=== PATIENT | female | born 1965 | race Caucasian/White ===

== ENCOUNTER 2020-05-19 08:39 | Outpatient (CLI) | payer OTHER, SELFPAY ==
--- NOTE | 2020-05-19 08:46 | CTR_ITS ---
PROCEDURE INFORMATION: Exam: CT Abdomen And Pelvis With Contrast Exam date and time: 05/19/2020 8:54 AM Age: 54 years old Clinical indication: Abdominal pain; Prior surgery; Surgery type: Csection; Patient HX: Sudden onset of severe epigastric pain with nausea; Additional info: Epigastric abdominal pain TECHNIQUE: Imaging protocol: Computed tomography of the abdomen and pelvis with intravenous contrast. Radiation optimization: All CT scans at this facility use at least one of these dose optimization techniques: automated exposure control; mA and/or kV adjustment per patient size (includes targeted exams where dose is matched to clinical indication); or iterative reconstruction. Contrast material: OMNI 300; Contrast volume: 95 ml; Contrast route: INTRAVENOUS (IV); COMPARISON: CR Abdomen Series Acute [id number] 01/22/2018 9:58 AM RADIATION DOSE METRICS: Total DLP (mGy-cm): 1271.38 FINDINGS: Pleural space: Mild interstitial prominence without acute airspace or pleural disease. Liver: Poorly defined hypodensity in the left hepatic lobe along with a 11 mm left hepatic lobe cyst. Gallbladder and bile ducts: No cholelithiasis or biliary ductal dilatation. Pancreas: No pancreatic mass or ductal dilatation. Spleen: No splenomegaly. Adrenals: Unremarkable adrenals. Kidneys and ureters: Normal renal morphology. Duplicated collecting systems, without hydronephrosis. Punctate renal hypodensities which are too small to accurately characterize. Stomach and bowel: Gastric wall thickening. No significant small bowel dilatation. Prominent stool and diverticula, without pericolonic inflammation. Appendix: No acute appendicitis. Intraperitoneal space: No significant free fluid. Vasculature: Normal caliber of the abdominal aorta. Lymph nodes: Subcentimeter lymph nodes. Bladder: Normal bladder morphology. Reproductive: Indwelling tampon. Enlarged uterus. Bilateral high attenuation ovarian cysts, including 3.1 cm right and 2.2 cm left ovarian cyst. Bones/joints: Bilateral sacroiliac joint sclerosis. Mild degenerative change and lumbar disc bulging. Soft tissues: Small fat containing umbilical hernia. CT/CT abdomen pelvis w con* [id number] IMPRESSION: 1. Gastric wall thickening. 2. Bilateral high attenuation ovarian cysts, including 3.1 cm right and 2.2 cm left ovarian cyst. 3. Prominent stool and diverticula, without pericolonic inflammation. 4. Additional findings as described above. COMMENTS: Consistent with the [employer]'s Incidental Findings Committee white paper (J Am She Radiol 2018): Any incidental renal lesion less than 1.0 cm or classified as too small to characterize, or any incidental cystic renal lesion characterized as simple-appearing, is likely benign. No follow-up imaging is recommended for these lesions per consensus recommendations based on imaging criteria. Radiation Dose CTDIVOL = (mGy): DLP = 1271.38 (mGy-cm)
[2020-05-19] MEDS: barium sulfate 450 mL Oral Susp PO (08:55)
[2020-05-19] MEDS: iohexol 300 mg/mL 100 mL Btl IV (09:28)
[2020-05-19 13:17] LABS: Alanine Aminotransferase 13 U/L (0-33); Albumin Level 4.6 g/dL (3.5-5.2); Alkaline Phosphatase 68 IU/L (35-105); Aspartate Amino Transferase 14 U/L (0-32); Blood Urea Nitrogen 7 mg/dL (6-20); Calcium 9.7 mg/dL (8.5-10.5); Carbon Dioxide 23 mmol/L (22-29); Chloride 96 mmol/L (98-107); Globulin 1.8 g/dL (1.3-4.6); Glomerular Filtration Rate 129.6 mL/min (90-130); Glucose 99 mg/dL (65-115); Lipase 26 U/L (13-60); Osmolality Calculated 274 mOsm/kg (285-295); Sodium 134 mmol/L (136-145); Total Bilirubin 0.3 mg/dL (0.15-1.2); Total Protein 6.4 g/dL (6.6-8.7)
[2020-05-19 13:18] LABS: Basophils % 0.3 %; Eosinophils # 0.1 10^3/uL (0.0-0.8); Eosinophils % 0.8 %; Hemoglobin 9.6 g/dL (11.5-15.3); Lymphocytes # 2.2 10^3/uL (0.8-4.8); Lymphocytes % 22.3 %; Mean Corpuscular Hemoglobin 21.2 pg (28.0-34.0); Mean Corpuscular Volume 70.6 fL (81-99); Mean Platelet Volume 10.2 fL (7.4-10.4); Monocytes # 0.7 10^3/uL (0.2-0.9); Monocytes % 7.1 %; Neutrophils # 6.7 10^3/uL (1.8-7.7); Neutrophils % 69.3 %; Nucleated Red Blood Cells % 0 %; Platelet Count 416 10^3/cmm (130-400); Red Blood Count 4.53 10^6/uL (4.1-5.3); Red Cell Distribution Width 16.9 % (12.1-15.1); White Blood Count 9.7 10^3/uL (4.0-10.0)
== END 2020-05-19 08:40 | disposition home or self-care (01) ==
LOC: RAD 08:42
PROVIDERS: PCP Family Medicine; Visit Provider Family Medicine
DX: R10.13 Epigastric pain (principal); N83.202 Unspecified ovarian cyst, left side; N83.201 Unspecified ovarian cyst, right side
CPT/HCPCS: 74177; 80053; 83690; 85025

== ENCOUNTER 2020-05-24 09:31 | Day surgery (SDC) | payer OTHER, SELFPAY ==
[2020-05-23 12:34] VITALS: BMI 30.9
[2020-05-24 10:10] VITALS: BP 133/87; PULSE 80; RESP 18; TEMP 36.2; O2SAT 97
--- NOTE | 2020-05-24 10:19 | W.PM.OPSUD ---
Surgery/Procedure H&P Update DATE OF PROCEDURE: May 24, 2020 DATE H&P PERFORMED: 05/23/20 H&P UPDATE INFORMATION: I have reviewed H&P completed within last 30 days, I have examined patient prior to procedure and No changes to prior documentation PLANNED PROCEDURE: Operation Date: 05/24/20 11:00 Proposed Procedures p EGD/32887 K12.9(Not Applicable) - Sid Brandon MD
[2020-05-24 10:23] LABS: OR HCG Qualitative Urine Negative (Negative)
[2020-05-24] MEDS: sodium chloride 0.9% 1,000 ML 30 ML IV (10:29)
--- NOTE | 2020-05-24 10:41 | ANES.PREANE2 ---
Pre-Anesthetic Assessment Pre-Anesthetic Assessment: Height/Weight: Height 1.63 m Weight 81.647 kg Temp Pulse Resp BP Pulse Ox 97.1 F L 80 18 133/87 97 05/24/20 10:10 05/24/20 10:10 05/24/20 10:10 05/24/20 10:10 05/24/20 10:10 Preop Diagnosis: Portal vein thrombosis gastric wall thickening Proposed Procedure: Operation Date: 05/24/20 11:00 Proposed Procedures p EGD/74244 K12.9(Not Applicable) - Sid Brandon MD Familial anesthetic complications: none Was Beta Wyatt taken within 24 hours: N/A Last intake: Intake Last Liquid Date 05/23/20 Last Liquid Time 23:00 Last Solid Date 05/23/20 Last Solid Time 23:00 Social: Social History: Tobacco and No alcohol Exam: Pre-Anes Outpt Exam: alert, oriented x 3, clear to auscultation bilaterally and regular rate & rhythm Airway: Cervical ROM: WNL MP: 4 Dentition: Full Pulmonary: Pulmonary: None reported CV/HEM: CV/HEM: None reported : : None reported Hepatic: Hepatic: None reported GI: GI: GERD Metabolic: Metabolic: None reported Musc/skel: Musc/skel: None reported Neuropsych: Neuropsych: None reported Anesthetic Plan: ASA status: 1 Anesthesia: MAC Risk of > 500 ml blood loss (7ml/kg in children): No Meds/Allergies Current Medications: Current Medications Generic Name Dose Route Start Last Admin Trade Name Freq PRN Reason Stop Dose Admin Sodium Chloride 1,000 mls @ 30 ml s/hr 05/24/20 10:30 05/24/20 10:29 Sodium Chloride 0.9% IV 30 mls/hr .Q24H CINTIA Administration PFSH Anesthesia PFSH: Medical History delivery delivered Depression GERD (gastroesophageal reflux disease) Portal vein thrombosis Surgical History H/O hand surgery H/O oral surgery History of ankle surgery Status post colonoscopy Family History Sister Cancer breast Father Cancer melanoma, prostate Brother Cancer prostate Other CAD (coronary artery disease) Denies family history of Diabetes Anesthesia complication Bleeding disorder Social History Smoking and tobacco status: current every day smoker Alcohol intake: current Alcohol intake frequency: few times a week Lives independently: Yes Marital status: Single Current occupational status: employed History of recent travel: Yes ([place] in march and april) Out of state: Yes Out of country: No Data Anesthesia Other Labs: Laboratory Results - last 48 hr 05/24/20 10:20 Urine HCG, Qual Negative Cardiac Studies: No Data to Display
[2020-05-24 12:11] VITALS: BP 129/85; PULSE 64; RESP 16; TEMP 36.1; O2SAT 97
--- NOTE | 2020-05-24 12:13 | ANE.PACU2 ---
Inpatient post-anesthesia follow up: Airway intact: Yes Vital signs: Temperature 97 F Pulse Rate 64 Respiratory Rate 16 Blood Pressure 129/85 Pulse Oximetry 97 Oxygen Delivery Me thod Room Air Oxygen Flow Rate Fraction of Inspir ed Oxygen Hydration adequate: Yes Nausea and vomiting: No Mental status: Baseline
[2020-05-24 12:21] VITALS: BP 146/62; PULSE 64; RESP 18; O2SAT 100
== END 2020-05-24 12:28 | disposition home or self-care (01) ==
PROVIDERS: Anesthesiology; PCP Family Medicine; Visit Provider Surgery
PROC: 0DJ08ZZ Inspection of Upper Intestinal Tract, Via Natural or Artificial Opening Endoscopic (ICD-10-PCS; CPT 43235; principal; 2020-05-24 11:00)
DX: K21.9 Gastro-esophageal reflux disease without esophagitis (principal); R10.9 Unspecified abdominal pain; F17.210 Nicotine dependence, cigarettes, uncomplicated; I81 Portal vein thrombosis; K29.80 Duodenitis without bleeding
CPT/HCPCS: 12345; 45380; 84703; 88305; J2704; J7030

== ENCOUNTER → 2020-07-26 08:54 | Outpatient (BNVA) | payer OTHER, SELFPAY | PROVIDERS: PCP Family Medicine; Visit Provider Nurse Practitioner Women's Health | DX: N93.9 Abnormal uterine and vaginal bleeding, unspecified (principal); B96.89 Other specified bacterial agents as the cause of diseases classified elsewhere; N76.0 Acute vaginitis | CPT/HCPCS: 85025; 87491; 87591; 87661 ==

== ENCOUNTER 2020-10-02 08:08 | Outpatient (CLI) | payer OTHER, SELFPAY ==
--- NOTE | 2020-10-02 08:00 | MM_ITS ---
WS: [id number] Bilateral screening digital mammogram, 10/02/2020 Clinical Data: breast cancer screening Comparison: 01/15/2018, 08/08/2015, 03/20/2012, 12/02/2007, 11/04/2006. Findings: The breast parenchymal pattern shows heterogeneous density No spiculated masses or clustered calcific ations are seen. There are no secondary signs of carcinoma. MM/[place] [id number] Impression: 1. Negative bilateral mammogram unchanged. 2. Recommend annual screening mammograms. BIRADS: 1-Negative FOLLOW UP: 1 Year Follow-up The CAD dry cleaning checker was used.
== END 2020-10-02 08:09 | disposition home or self-care (01) ==
PROVIDERS: PCP Family Medicine; Visit Provider Nurse Practitioner Women's Health
DX: Z12.31 Encounter for screening mammogram for malignant neoplasm of breast (principal)
CPT/HCPCS: 77067

== ENCOUNTER → 2021-06-21 09:18 | Outpatient (BNVA) | payer OTHER, SELFPAY | PROVIDERS: PCP Family Medicine; Referring Provider Family Medicine; Visit Provider Specialist | DX: G25.0 Essential tremor (principal); M25.539 Pain in unspecified wrist; R20.0 Anesthesia of skin; R20.2 Paresthesia of skin; F17.200 Nicotine dependence, unspecified, uncomplicated | CPT/HCPCS: 99204 ==

== ENCOUNTER → 2021-09-28 10:30 | Outpatient (BNVA) | payer OTHER, SELFPAY | PROVIDERS: PCP Family Medicine; Visit Provider Nurse Practitioner Women's Health | DX: Z11.3 Encounter for screening for infections with a predominantly sexual mode of transmission (principal); N93.9 Abnormal uterine and vaginal bleeding, unspecified | CPT/HCPCS: 85025; 86592; 86803; 87491; 87591; 87661; 87806 ==

== ENCOUNTER 2021-12-10 13:31 | Outpatient (CLI) | payer OTHER, SELFPAY ==
--- NOTE | 2021-12-10 13:50 | US_ITS ---
WS: [id number] TRANSABDOMINAL PELVIC AND TRANSVAGINAL PELVIC ULTRASOUND HISTORY: N93.9 - Abnormal uterine and vaginal bleeding, unspecified COMPARISON: None available. Also within the differential. Ill-defined Uterus: 11.3 cm x 6.3 cm x 5.9 cm. Uterus is enlarged and anteverted. Very heterogeneous appearance t o the myometrium. Both the anterior and posterior myometrium are of increased echogenicity and hetero geneous. Endometrium: Poorly visualized endometrium. Endometrium is not seen throughout its entirety. The junc tional zone is not well identified. Right ovary: 4.5 cm x 4.0 cm x 4.3 cm. RIGHT ovary is slightly enlarged. There is a cyst with septati on or 2 adjacent cysts associated with the RIGHT ovary. The entire cyst measures 2.8 x 3.2 x 3.1 cm. No solid mass. There is a very tiny amount of free fluid adjacent to the ovary. Left ovary: 3.0 cm x 3.7 cm x 1.9 cm. Normal size and vascularity. US/US pelvic with transvaginal IMPRESSION: 1. Abnormal uterus. Enlarged heterogeneous uterus. This may be a fibroid uteru s with ill-defined diffuse fibroids. Adenomyosis within the differential also. 2. Ill-defined and only partially visualized endometrium. Cannot exclude endom etrial neoplasm is only a small portion of the endometrium is visualized and th e junctional zone is abnormal. Adenomyosis within the differential. 3. RIGHT ovarian cysts versus septated cyst.
== END 2021-12-10 13:32 | disposition home or self-care (01) ==
LOC: RAD 13:46
PROVIDERS: PCP Family Medicine; Visit Provider Obstetrics & Gynecology
DX: N93.9 Abnormal uterine and vaginal bleeding, unspecified (principal); N80.0 Endometriosis of uterus
CPT/HCPCS: 76830; 76856

== ENCOUNTER → 2021-12-12 14:33 | Outpatient (BNVA) | payer OTHER, SELFPAY | PROVIDERS: PCP Family Medicine; Visit Provider Obstetrics & Gynecology | DX: N93.9 Abnormal uterine and vaginal bleeding, unspecified (principal); N76.0 Acute vaginitis; B96.89 Other specified bacterial agents as the cause of diseases classified elsewhere | CPT/HCPCS: 84443; 88305 ==

== ENCOUNTER → 2021-12-26 10:20 | Outpatient (BNVA) | payer OTHER, SELFPAY | PROVIDERS: PCP Family Medicine; Visit Provider Orthopaedic Surgery | DX: Z11.52 Encounter for screening for COVID-19 (principal) | CPT/HCPCS: 87635 ==

== ENCOUNTER 2022-01-24 10:29 | Inpatient (IN) | payer OTHER, SELFPAY ==
[2022-01-23 10:09] VITALS: BMI 30.5
[2022-01-24] VITALS (22 sets, daily range): BP systolic 108–163; BP diastolic 82–93; PULSE 70–97; RESP 10–18; TEMP 36.6–37.1; O2SAT 87–98
[2022-01-24] MEDS: sodium chloride 0.9% 1,000 ML 30 ML IV (06:22)
[2022-01-24 06:45] LABS: Basophils % 0.5 %; Eosinophils # 0.3 10^3/uL (0.0-0.8); Eosinophils % 3.5 %; Hematocrit 42.1 % (37.0-47.0); Hemoglobin 14.1 g/dL (11.5-15.3); Lymphocytes # 2.6 10^3/uL (0.8-4.8); Lymphocytes % 34.3 %; Mean Corpuscular HGB Conc 33.5 g/dL (30.0-36.0); Mean Corpuscular Hemoglobin 31.3 pg (28.0-34.0); Mean Corpuscular Volume 93.3 fl (81-99); Monocytes # 0.6 10^3/uL (0.2-0.9); Monocytes % 8.6 %; Neutrophils # 3.96 10^3/uL (1.8-7.7); Nucleated Red Blood Cells % 0 %; Platelet Count 243 10^3/cmm (130-400); Red Blood Count 4.51 10^6/uL (4.1-5.3); Red Cell Distribution Width 12.4 % (12.1-15.1); White Blood Count 7.5 10^3/uL (4.0-10.0)
--- NOTE | 2022-01-24 06:45 | P.ANESASSM_ITS ---
Pre-Anesthetic Assessment Height/Weight: Height 1.63 m Weight 80.739 kg Temp Pulse Resp BP Pulse Ox 98.1 F 70 16 144/85 97 01/24/22 06:09 01/24/22 06:09 01/24/22 06:09 01/24/22 06:09 01/24/22 06:09 Preop Diagnosis: Abdominal pain, abnormal uterine bleeding Operation Date: 01/24/22 07:00 Proposed Procedures p Total Abdominal Hysterectomy 39534(Not Applicable) - Velia Francis MD s Salpingo Oophorectomy (Open)(Bilateral) - Velia Francis MD Familial anesthetic complications: None Was Beta Wyatt taken within 24 hours: N/A Was Clonidine taken within 24 hours: N/A Last intake: Intake Last Liquid Date 01/23/22 Last Liquid Time 20:00 Last Solid Date 01/23/22 Last Solid Time 20:00 Social Tobacco and No alcohol Exam alert, oriented x 3, clear to auscultation bilaterally and regular rate & rhythm Airway Mallampati: Class II Dentition: full GI Gastroesophageal Reflux Disease Neuropsych tremor Anesthetic Plan ASA status: 2 Anesthesia: General Risk of > 500 ml blood loss (7ml/kg in children): No Medications/Allergies Home Medications Medication Instructions Recorded Confirmed Last Taken Type fluoxetine 20 mg capsule 40 mg PO DAILY #60 cap 09/28/21 01/23/22 Unknown Rx Allergies Allergy/AdvReac Type Severity Reaction Status Date / Time No Known Allergies Allergy Verified 01/24/22 06:08 Current Medications Generic Name Dose Route Start Last Admin Trade Name Freq PRN Reason Stop Dose Admin Sodium Chloride 1,000 mls @ 30 mls/hr 01/24/22 06:00 01/24/22 06:22 Sodium Chloride 0.9% IV 01/25/22 05:59 30 mls/hr .Q24H CINTIA Administration PFSH Anesthesia Medical History Depression Controlled with fluoxetine managed by her primary care provider GERD (gastroesophageal reflux disease) Controlled with medication No pertinent past medical history Denies diabetes, asthma, hypertension, seizures, DVT/PE PMD: Dr. Lal Portal vein thrombosis Diagnosed in May 2020. States that this was diagnosed after a fall and she took Eliquis for 10 days. Surgical History H/O esophagogastroduodenoscopy (05/24/20) Gastritis and duodenitis History of ankle surgery 2005 and 2009 Fracture of the lower left leg which was repaired by Dr. Mercado; also had joint surgery in her left foot. S/P carpal tunnel release bilateral-left in July [address] Magana, right in 2014 in [place] S/P section x 1996 and 1998 S/P wisdom tooth extraction [employer] grade--had supernumerary teeth removed from sinus cavity Family History Sister Breast cancer Diagnosed at age 42, unsure if hormone receptive Father Prostate cancer Melanoma Diabetes Bowel perforation Brother CAD (coronary artery disease) Bowel perforation Prostate cancer Grandfather CAD (coronary artery disease) maternal Mother Stroke Ovarian cancer diagnosed at age 85 Family/Other Graves disease paternal aunt Denies family history of Anesthesia complication Uterine cancer Female Reproductive History Date of last menstrual period: 12/24/21 Data Anesthesia : 01/24/22 06:15 01/24/22 06:15 Cardiac Studies: No Data to Display
--- NOTE | 2022-01-24 06:56 | W.PM.OPSUD ---
Surgery/Procedure H&P Update DATE OF PROCEDURE: January 24, 2022 DATE H&P PERFORMED: 01/21/22 H&P UPDATE INFORMATION: I have reviewed H&P completed within last 30 days, I have examined patient prior to procedure, No changes to prior documentation and H&P is in [facility] EMR on date indicated PREOP DIAGNOSIS: Abdominal pain, abnormal uterine bleeding PLANNED PROCEDURE: Operation Date: 01/24/22 07:00 Proposed Procedures p Total Abdominal Hysterectomy [id number](Not Applicable) - Velia Francis MD s Salpingo Oophorectomy (Open)(Bilateral) - Velia Francis MD
[2022-01-24 06:58] LABS: Alanine Aminotransferase 18 U/L (0-33); Albumin Level 4.5 g/dL (3.5-5.2); Alkaline Phosphatase 54 IU/L (35-105); Aspartate Amino Transferase 16 U/L (0-32); Blood Urea Nitrogen 14 mg/dL (6-20); Calcium 9.4 mg/dL (8.5-10.5); Carbon Dioxide 21 mmol/L (22-29); Chloride 104 mmol/L (98-107); Creatinine Clr Calc Pharmacy 132.2208; Globulin 2.2 g/dL (1.3-4.6); Glomerular Filtration Rate 128.6 mL/min (90-130); Glucose 108 mg/dL (65-115); Osmolality Calculated 285 mOsm/kg (285-295); Sodium 137 mmol/L (136-145); Total Bilirubin 0.5 mg/dL (0.15-1.2); Total Protein 6.7 g/dL (6.6-8.7)
[2022-01-24 07:00] LABS: OR HCG Qualitative Urine Negative (Negative)
[2022-01-24 07:11] LABS: Anion Gap 16.1 (5-19); Potassium 4.1 mmol/L (3.5-5.1)
[2022-01-24] MEDS: ceFAZolin 1,000 mg SDV 2000 MG IVP (07:15)
--- NOTE | 2022-01-24 09:19 | SUR.OPER ---
family updated of surgical status
--- NOTE | 2022-01-24 09:38 | PM.OP ---
Operative Report Date of procedure: January 24, 2022 OPERATIVE REPORT Date of surgery: 01/24/2022 Date of dictation: 01/24/2022 Preoperative diagnosis: Abnormal uterine bleeding, chronic lower abdominal pain, family history of ovarian cancer, sleep apnea Postoperative diagnosis/findings: 10-week size anteverted uterus, mobile, dense additions of the bladder onto the uterus, no other intra-abdominal adhesions noted. Normal, normal tubes and ovaries bilaterally- Procedure done: Total abdominal hysterectomy, bilateral salpingo-oophorectomy Specimens removed/disposition of specimens: Uterus, cervix, bilateral tubes and ovaries Surgeon: Dr. Velia Pichardo multimedia production assistant: Iris, Anesthesia: General endotracheal tube anesthesia Estimated blood loss: 150 ml Intravenous fluids: 1100 mL of LR Urine output: 100 mL of clear urine at the end of procedure Medications: As per anesthesia records Complications: None, patient was extubated and taken to the recovery room in a stable condition PROCEDURE: After consent was obtained patient was taken to the operating room where she was placed under general anesthesia. Sequential compression boots and Figueroa catheter were placed. She was prepped and draped in the usual sterile fashion in a dorsal supine position. A horizontal suprapubic incision was made using a scalpel at the level of her previous scar which was 1 cm above the pubic bone and this was extended down to the Fascia using a combination of scalpel and Bovie. Good hemostasis was achieved in the subcutaneous field.. This was carried down to the fascia with electrocautery and a scalpel. Fascia was incised in the midline and extended laterally sharply. Rectus muscles were in the midline sharply and Peritoneum was identified and was sharply entered. No adhesions were noted of the bowel or uterus onto the anterior abdominal wall. The uterus was exteriorized and then the bowel was packed away and pelvis was visualized. The bowel was carefully packed away and an O'Raj-O'Kulkarni retractor was placed to help with visualization. Dense adhesions were noted from the bladder onto the uterus. Findings noted as described above. The right and left round ligaments were identified clamped with the abdominal Voyant and cauterized and then cut. The broad ligament incision was extended inferiorly and carried over the lower uterine segment to meet with the dissection the contralateral side and a bladder flap was created. The bladder was then off from the cervix sharply-sedations were dense. Once the bladder was safely taken off it was inspected and no defects were noted and bladder blade was placed. 3 ovarian ligament, fallopian tube and round ligament were clamped cauterized and then cut with the Voyant and this was continued inferiorly up until the level of the internal os first done on the right side and then done on the left side taking care to stay as close to the uterus as possible. Once we were at the level of the cervix we switched to suture and clamping. Curved clamps were placed at the level of the internal os. These were cut, and then tied with 0 Vicryl suture bilaterally. The bladder was then sharply dissected away from the cervix until it was carried below the level of the cervix. The remaining portion of the parametria was then serially clamped, cut, and suture ligated with 0 Vicryl suture bilaterally until the bottom of the cervix was reached. At this point, sharply curved clamps were placed across the top of the vagina and the remaining portion of the cervix excised. With this the uterus and cervix were removed. The cervix was inspected and noted to be complete. The corners of the cuff were secured with 0 Vicryl suture in a Monica fashion bilaterally. The remaining portion of the vaginal cuff was closed with 0 Vicryl suture in an interrupted [id number] fashion. The area was thoroughly inspected and noted to be hemostatic and intact It was irrigated and noted to be hemostatic. Attention was then turned towards the fallopian tubes and ovaries bilaterally. They were grasped with Sultana and using the abdominal Voyant the mesosalpinx and IP ligament were clamped cauterized and cut serially so that the fallopian tubes and ovary were from the sidewall. This was done first on the right and then on the left side without any difficulty. Care was taken to stay medial well away from the pelvic sidewall. The ureters were visualized and peristalsis seen. The pelvis was irrigated once again hemostasis was noted. Surgicel was placed over the vaginal cuff. The packing and retractor was removed. The peritoneum was closed in a continuous stitch. The rectus muscle was reapproximated using mattress sutures.Hemostasis was achieved in the muscle layer. The fascia was closed with 0 loop PDS in a continuous fashion and good reapproximation was obtained. The subcutaneous plane was irrigated well and hemostasis was achieved with the Bovie. It was reapproximated using 2-0 plain sutures in a continuous fashion. Skin was closed with a 4-0 Monocryl in a subcuticular fashion. Pressure dressing was applied onto the abdomen. Lap instrument and needle counts were correct x2. Figueroa catheter was replaced. Patient was extubated without difficulty and taken to the recovery room in a stable condition. This documentation was created by [employer] social sciences research scientist software (known for inherent social sciences research scientist error). Every effort was made to assure accuracy of social sciences research scientist. Any obvious errors or omissions should be clarified with the author of the document. Pre-op diagnosis: Preop Diagnosis Abdominal pain, abnormal uterine bleeding
[2022-01-24] MEDS: HYDROmorphone 1 mg/mL INJ 1 mL 0.5 MG IVP ×2 (09:54→10:10)
[2022-01-24] MEDS: morphine 4 mg/mL SDV 1 mL IVP (12:26)
[2022-01-24] MEDS: ibuprofen 800 mg tablet PO ×2 (12:27→18:20)
[2022-01-24] MEDS: HYDROcodone-acetaminophen 5-325 mg Tablet PO (13:15)
[2022-01-24] MEDS: dextrose 5%-lactated ringers 1,000 ML 125 ML IV ×2 (13:17→21:30)
[2022-01-24] MEDS: morphine 4 mg/mL SDV 1 mL 2 MG IVP (16:31)
[2022-01-24] MEDS: docusate sodium 100 mg Capsule PO (18:20)
--- NOTE | 2022-01-24 18:35 | PC.NURSE ---
Pt ambulated from room and around nurses station x4 laps. Pt tolerated well and denies any complaints. Pt back to bed once back to room to rest.
--- NOTE | 2022-01-24 19:19 | ANE.PACU2 ---
Inpatient post-anesthesia follow up: Airway intact: Yes Vital signs: Temperature 97.8 F Pulse Rate 88 Respiratory Rate 16 Blood Pressure 149/93 Pulse Oximetry 98 Oxygen Delivery Me thod Nasal Cannula Oxygen Flow Rate 2 Fraction of Inspir ed Oxygen Hydration adequate: No Nausea and vomiting: Yes Pain level: 2 Mental status: Baseline
--- NOTE | 2022-01-24 20:28 | PC.NURSE ---
Vitals charted by this nurse at 2027 for Lucie Viramontes RN from 1730.
[2022-01-24] MEDS: acetaminophen 325 mg Tablet 650 MG PO (22:39)
[2022-01-25] VITALS (8 sets, daily range): BP systolic 131–156; BP diastolic 76–92; PULSE 61–71; RESP 14–17; TEMP 36.7–37.1; O2SAT 96–97
[2022-01-25] MEDS: ibuprofen 800 mg tablet PO ×3 (03:02→18:20)
[2022-01-25 05:10] LABS: Hemoglobin 11.9 g/dL (11.5-15.3); Mean Corpuscular HGB Conc 33.1 g/dL (30.0-36.0); Mean Corpuscular Hemoglobin 31.6 pg (28.0-34.0); Mean Corpuscular Volume 95.5 fl (81-99); Mean Platelet Volume 9.6 fL (7.4-10.4); Platelet Count 201 10^3/cmm (130-400); Red Blood Count 3.77 10^6/uL (4.1-5.3); Red Cell Distribution Width 12.4 % (12.1-15.1); White Blood Count 11.2 10^3/uL (4.0-10.0)
[2022-01-25] MEDS: docusate sodium 100 mg Capsule PO ×2 (09:48→18:20)
--- NOTE | 2022-01-25 12:44 | P.PN_ITS ---
Subjective Subjective: SUBJECTIVE: Ms. Meng is doing well today. She states that she is consistently pass gas and has voided without any difficulty since removal of the catheter. She did have a headache and states that she normally has a headache with hydrocodone and since her change to Dilaudid she is overall doing much better. She denies nausea, vomiting, fever, chills, shortness of breath and chest pain and overall feels pretty good. She has questions about surgery OBJECTIVE/PHYSICAL EXAM: Gen.: No acute distress Heart: S1-S2 heard, regular rate and rhythm Lungs: Clear to auscultation bilaterally Abdomen: Soft, nondistended, no rebound, no guarding, some tenderness around incision. Incision: Clean dry and intact with Steri-Strips. Legs: No calf tenderness, no pedal edema. ASSESSMENT AND PLAN: 56-year-old 2 para 2-0-0-2 status post ESTEFANIA/BSO, postoperative day #1 -Doing well-continue routine postoperative care -We will advance to regular diet since she has passed flatus and has good bowels --if she is tolerating regular diet can discontinue IV later today -Continue p.o. Dilaudid for pain-evidence of her pain is well controlled with p.o. pain medication -Continue incentive spirometer use and ambulation -SCDs while in bed -Anticipate discharge home tomorrow as long as she continues to do well -Vital signs stable and hemoglobin stable Vitals/I&O/Wt Last Vital Signs Temp 98.8 F 01/25/22 04:15 Pulse 69 01/25/22 09:50 Resp 17 01/25/22 09:50 BP 139/76 01/25/22 09:50 Pulse Ox 97 01/25/22 04:15 01/24/22 01/25/22 01/25/22 22:59 06:59 14:59 Intake Total 1000 / 3400 1000 / 4400 Output Total 1650 / 2500 5 / 4525 700 / 700 Balance -650 / 900 -1025 / -125 -700 / -700 Physical Exam Urinary Catheter Management: Figueroa Latex: Cath Placed During This Visit: yes, but has since been removed by the nurse Reason for Continuing Indwelling Catheter: Required Immobilization for Trauma or Surgery or Anesthesia Urinary Catheter Date of Insertion: 01/24/22 Urinary Catheter Time of Insertion: 07:20 Date Urinary Catheter Removed: 01/25/22 Time Urinary Catheter Discontinued: 02:10 Data : 01/25/22 05:05 01/24/22 06:15 Attestations Medical Necessity Statement*: Patient needs to stay for 1 or 2 more nights to recover from surgery Coding Level of Care Code Acute Binder Operator for Casper Walsh
[2022-01-25] MEDS: simethicone 80 mg Chew PO (15:02)
[2022-01-26] MEDS: acetaminophen 325 mg Tablet 650 MG PO (01:07)
[2022-01-26] MEDS: ibuprofen 800 mg tablet PO ×2 (03:38→13:58)
[2022-01-26 04:25] VITALS: BP 149/89; PULSE 71; RESP 16; O2SAT 96
[2022-01-26 04:49] LABS: Basophils % 0.5 %; Eosinophils # 0.2 10^3/uL (0.0-0.8); Eosinophils % 1.9 %; Hematocrit 35.5 % (37.0-47.0); Hemoglobin 11.7 g/dL (11.5-15.3); Lymphocytes # 2.9 10^3/uL (0.8-4.8); Lymphocytes % 35.5 %; Mean Platelet Volume 9.6 fL (7.4-10.4); Monocytes # 0.7 10^3/uL (0.2-0.9); Monocytes % 8.1 %; Neutrophils # 4.43 10^3/uL (1.8-7.7); Neutrophils % 53.6 %; Nucleated Red Blood Cells % 0 %; Platelet Count 201 10^3/cmm (130-400); Red Blood Count 3.66 10^6/uL (4.1-5.3); Red Cell Distribution Width 12.6 % (12.1-15.1); White Blood Count 8.3 10^3/uL (4.0-10.0)
[2022-01-26] MEDS: ketorolac 30 mg/mL INJ IM (04:51)
[2022-01-26 07:30] VITALS: BP 139/90; PULSE 69; RESP 18; TEMP 36.8; O2SAT 96
[2022-01-26] MEDS: docusate sodium 100 mg Capsule PO (09:24)
[2022-01-26 09:25] VITALS: BP 143/84; PULSE 84
[2022-01-26 13:00] VITALS: BP 151/81; PULSE 84; RESP 12; TEMP 36.9
--- NOTE | 2022-01-26 13:39 | P.DS_ITS ---
Discharge Providers RELATIONSHIP MANAGER Date of Admission: 01/24/22 10:29 Date of Discharge: 01/26/22 Attending Provider at Admission: Velia Francis MD Attending Provider at Discharge: Velia Francis MD ADMISSION DIAGNOSIS: Abnormal uterine bleeding Chronic pelvic pain DISCHARGE DIAGNOSIS: Status post ESTEFANIA/BSO on 01/24/2022 PREHOSPITAL COURSE: Ms. Bronson is a 56-year-old 1 para 1001 with a abnormal uterine bleeding and had tried medical management with minimal improvement and desires a hysterectomy. She presented on 01/24/2021 for schedule surgery. Postoperative diagnosis/findings: Same, enlarged multifibroid uterus, normal tubes and ovaries bilaterally Procedure done: Total abdominal hysterectomy, bilateral salpingo-oophorectomy Specimens removed/disposition of specimens: Uterus cervix bilateral tubes and ovaries HOSPITAL COURSE: She underwent an uncomplicated ESTEFANIA/BSO on 01/24/2022. She did well on postoperative day 0 and was ambulating well, tolerating clear liquid diet. Pain was well-controlled with by mouth and IV pain medication. She denied nausea, vomiting, fever, chills, shortness of breath, leg pain. She had minimal vaginal bleeding. Figueroa catheter was kept overnight and she had adequate urine output. On postoperative day #1 she continued to do well with stable vital signs and stable hemoglobin at 11.7. Figueroa catheter was removed and patient was able to void with minimal residual noted on bladder scan. She ambulated well started passing flatus and then tolerated a regular diet. She continued to do well on postoperative day #2. She did have a mild headache which resolved with Toradol. She was discharged home on postoperative day #2 in a stable condition. Warning signs for wound infection, cuff infection, DVT/PE were reviewed with her. Post surgical activity restrictions were also reviewed with her at all her questions were answered to her satisfaction. This documentation was created by [employer] oncology admin software (known for i camillarent oncology admin error). Every effort was made to assure accuracy of oncology admin. Any obvious errors or omissions should be clarified with the author of the document. Primary Care Provider: Rios Lal DO Reason for Visit Reason for Visit: abnormal uterine bleeding [id number] Physical Exam Urinary Catheter Management: Figueroa Latex: Cath Placed During This Visit: yes, but has since been removed by the nurse Reason for Continuing Indwelling Catheter: Required Immobilization for Trauma or Surgery or Anesthesia Urinary Catheter Date of Insertion: 01/24/22 Urinary Catheter Time of Insertion: 07:20 Date Urinary Catheter Removed: 01/25/22 Time Urinary Catheter Discontinued: 02:10 History History History 2 Term 2 Miscarriages/Ectopic 0 0 Living Children 2 Discharge Data Studies Completed and Pending Pending at discharge Category Date Time Status Pathology: Surgical [PTH] Routine Pth 01/24/22 09:26 Received Laboratory Results WBC 8.3 10^3/uL (4.0-10.0) 01/26/22 04:30 RBC 3.66 10^6/uL (4.1-5.3) L 01/26/22 04:30 Hgb 11.7 g/dL (11.5-15.3) 01/26/22 04:30 Hct 35.5 % (37.0-47.0) L 01/26/22 04:30 MCV 97.0 fl (81-99) 01/26/22 04:30 MCH 32.0 pg (28.0-34.0) 01/26/22 04:30 MCHC 33.0 g/dL (30.0-36.0) 01/26/22 04:30 RDW 12.6 % (12.1-15.1) 01/26/22 04:30 Plt Count 201 10^3/cmm (130-400) 01/26/22 04:30 MPV 9.6 fL (7.4-10.4) 01/26/22 04:30 Neut % (Auto) 53.6 % 01/26/22 04:30 Lymph % (Auto) 35.5 % 01/26/22 04:30 Carter % (Auto) 8.1 % 01/26/22 04:30 Eos % (Auto) 1.9 % 01/26/22 04:30 Baso % (Auto) 0.5 % 01/26/22 04:30 Neut # (Auto) 4.43 10^3/uL (1.8-7.7) 01/26/22 04:30 Lymph # (Auto) 2.9 10^3/uL (0.8-4.8) 01/26/22 04:30 Carter # (Auto) 0.7 10^3/uL (0.2-0.9) 01/26/22 04:30 Eos # (Auto) 0.2 10^3/uL (0.0-0.8) 01/26/22 04:30 Baso # (Auto) 0.0 10^3/uL (0.0-0.1) 01/26/22 04:30 Nucleated RBC % (auto) 0 % 01/26/22 04:30 Nucleated RBCs # 0.0 /100WBC 01/26/22 04:30 Sodium 137 mmol/L (136-145) 01/24/22 06:15 Potassium 4.1 mmol/L (3.5-5.1) 01/24/22 06:15 Chloride 104 mmol/L (98-107) 01/24/22 06:15 Carbon Dioxide 21 mmol/L (22-29) L 01/24/22 06:15 Anion Gap 16.1 (5-19) 01/24/22 06:15 BUN 14 mg/dL (6-20) 01/24/22 06:15 Creatinine 0.5 mg/dL (0.5-0.9) 01/24/22 06:15 GFR Calculation 128.6 mL/min (90-130) 01/24/22 06:15 Glucose 108 mg/dL (65-115) 01/24/22 06:15 Calculated Osmolality 285 mOsm/kg (285-295) 01/24/22 06:15 Calcium 9.4 mg/dL (8.5-10.5) 01/24/22 06:15 Total Bilirubin 0.5 mg/dL (0.15-1.2) 01/24/22 06:15 AST 16 U/L (0-32) 01/24/22 06:15 ALT 18 U/L (0-33) 01/24/22 06:15 Alkaline Phosphatase 54 IU/L (35-105) 01/24/22 06:15 Total Protein 6.7 g/dL (6.6-8.7) 01/24/22 06:15 Albumin 4.5 g/dL (3.5-5.2) 01/24/22 06:15 Globulin 2.2 g/dL (1.3-4.6) 01/24/22 06:15 Urine HCG, Qual Negative (Negative) 01/24/22 06:06 Blood Type O Positive 01/24/22 06:15 Rho(D) Type Positive 01/24/22 06:15 Antibody Screen Negative 01/24/22 06:15 Vitals Last Vital Signs Temp 98.3 F 01/26/22 07:30 Pulse 84 01/26/22 09:25 Resp 18 01/26/22 07:30 BP 143/84 01/26/22 09:25 Pulse Ox 96 01/26/22 07:30 Discharge Plan Discharge Patient Disposition: Home Condition: Stable Prescriptions: New ibuprofen 800 mg tablet 800 mg PO Q8H Qty: 30 0RF docusate sodium 100 mg Capsule 100 mg PO BID PRN (Reason: constipation) Qty: 30 0RF Dilaudid 2 mg tablet 2 mg PO Q6H Qty: 25 0RF Continued fluoxetine 20 mg capsule 40 mg PO DAILY Qty: 60 11RF Discharge Orders: Discharge Order (Routine); Ordered 01/26/22 Ordered By: Velia Francis Referrals: Velia Francis MD [Physician] - (1 WEEK APPOINTMENT 02/04/22 2:45 PM 6 WEEK APPOINTMENT 03/04/22 3:15 PM) Patient Instructions: Fluoxetine (By mouth), Hysterectomy (DC), OB Discharge Report, Opioid Safety Activity Restrictions/Additional Instructions: No heavy lifting for 6 weeks, pelvic rest for 6 weeks Follow-up with Dr. Pichardo 2-week and 6-week postoperative visit Emergency room precautions reviewed Discharge Attestations RELATIONSHIP MANAGER Time Spent in Discharge Care*: greater than 30 min Coding Level of Care Code Acute Edge Polisher for Casper Walsh
[2022-01-26 14:13] VITALS: BP 151/81; PULSE 84; RESP 12; TEMP 36.9
== END 2022-01-26 14:00 | disposition home or self-care (01) | DRG 743 ==
LOC: OBGYN 10:31
PROVIDERS: Admitting Provider Obstetrics & Gynecology; PCP Family Medicine; Visit Provider Obstetrics & Gynecology
PROC: 0UT90ZZ Resection of Uterus, Open Approach (ICD-10-PCS; CPT 58150; principal; 2022-01-24 07:00)
PROC: 0UT90ZZ Resection of Uterus, Open Approach (ICD-10-PCS; CPT 58720; 2022-01-24 07:00)
DX: D25.9 Leiomyoma of uterus, unspecified (principal); N93.9 Abnormal uterine and vaginal bleeding, unspecified; F32.A Depression, unspecified; K21.9 Gastro-esophageal reflux disease without esophagitis; Z86.718 Personal history of other venous thrombosis and embolism; F17.210 Nicotine dependence, cigarettes, uncomplicated; Z80.41 Family history of malignant neoplasm of ovary; G47.30 Sleep apnea, unspecified
CPT/HCPCS: 36415; 51702; 51798; 80053; 81025; 84703; 85025; 85027; 86850; 86900; 88307; 96372; J0690; J1100; J1170; J1200; J1885; J2250; J2270; J2405; J2704; J2710; J3010; J3490; J7030

== ENCOUNTER → 2022-02-18 10:55 | Outpatient (BNVA) | payer OTHER, SELFPAY | PROVIDERS: PCP Family Medicine; Visit Provider Obstetrics & Gynecology | DX: R10.2 Pelvic and perineal pain (principal) | CPT/HCPCS: 81003; 87086 ==

== ENCOUNTER 2022-03-05 11:33 | Outpatient (CLI) | payer OTHER, SELFPAY ==
--- NOTE | 2022-03-05 11:46 | MM_ITS ---
WS: [id number] BILATERAL 3D TOMOSYNTHESIS DIGITAL SCREENING MAMMOGRAPHY WITH CAD CLINICAL INFORMATION: Z12.39 - Encounter for other screening for malignant neop... HISTORY: Screening mammogram. No current complaints. COMPARISON: October 02, 2020 TECHNIQUE: Bilateral CC and MLO views. FINDINGS: The breasts are composed of heterogeneous fibroglandular density tissue, which can limit the detectio n of small underlying mass lesions. Vascular calcification. Tiny incidental punctate calcifications. No suspicious mass, asymmetry, calcifications, or architectural distortion. No evidence of malignancy . MM/[place] [id number] IMPRESSION: BI-RADS: 2-Benign FOLLOW UP: 1 Year Follow-up Recommend return to annual screening mammography.
== END 2022-03-05 11:34 | disposition home or self-care (01) ==
LOC: RAD 11:34
PROVIDERS: PCP Family Medicine; Visit Provider Obstetrics & Gynecology
DX: Z12.31 Encounter for screening mammogram for malignant neoplasm of breast (principal)
CPT/HCPCS: 77063; 77067